=== PATIENT | male | born 1970 | race Caucasian/White ===

== ENCOUNTER → 2022-05-24 | Outpatient (CLI) | payer OTHER ==
--- NOTE | 2022-05-24 18:19 | DIREP ---
PROCEDURE:XRAY SPINE THORACIC 3 VWS COMPARISON:None. INDICATIONS:Z00.00 HISTORY AND PHYSICAL EVALUATION TECHNIQUE:AP & lateral views of the thoracic spine and a swimmer's view of the cervicothoracic junction are provided. FINDINGS: ALIGNMENT:Mild increased kyphosis from multilevel disc space narrowing VERTEBRAE:Moderate anterior disc osteophyte complexes without acute fracture. DISK SPACES:Significant multilevel anterior disc space narrowing most pronounced about the mid upper thoracic spine. OTHER:Normal. CONCLUSION:Multilevel degenerative changes as detailed above. No acute fracture. Dictated by: Shlomo Barrientos DO on 05/24/2022 at 06:17 PM
--- NOTE | 2022-05-24 18:24 | DIREP ---
PROCEDURE:XRAY SPINE LUMBAR 2-3 VWS COMPARISON:None. INDICATIONS:Z00.00 HISTORY AND PHYSICAL EVALUATION TECHNIQUE:AP, lateral, and coned down lateral views of the lumbar spine are provided. FINDINGS: ALIGNMENT:Normal. VERTEBRAE:Normal. DISK SPACES:Disc degenerative change with moderate osteophyte formation. Facet sclerosis and hypertrophy, predominantly L5-S1, lesser amounts at L4-5 SPONDYLOLISTHESIS:None. SACROILIAC JOINTS:Normal. OTHER:Normal. CONCLUSION:Degenerative changes. No acute findings Dictated by: Unruly Sagastume MD on 05/24/2022 at 06:22 PM
== END | disposition home or self-care (01) ==
LOC: RAD 15:38
PROVIDERS: ATTEND Registered Nurse
DX: M47.816 Spondylosis without myelopathy or radiculopathy, lumbar region (principal); M47.814 Spondylosis without myelopathy or radiculopathy, thoracic region; Z00.00 Encounter for general adult medical examination without abnormal findings
CPT/HCPCS: 72072; 72100